=== PATIENT | male | born 1945 | race Caucasian/White ===

== ENCOUNTER → 2017-07-04 | Outpatient (CLI) | payer OTHER, MEDICARE ==
[~2017-07-04] MED LIST: ASPIR 8181 MG PO; ATORVASTATIN CA40 MG PO; CARVEDILOL3.125 MG PO; COZAAR 25 MG TA25 M1 PO; FLOMAX0.4 MG PO; HUMALOG100 UNIT/1 SUBQ; LEVAQUIN 750 M750 MG PO; METFORMIN HCL1000 MG PO; PROZAC20 MG PO; SIMVASTATIN40 MG PO
== END ==
LOC: NUC 07:12
DX: I25.10 Atherosclerotic heart disease of native coronary artery without angina pectoris (principal); E11.9 Type 2 diabetes mellitus without complications

== ENCOUNTER → 2018-07-14 | Outpatient (CLI) | payer OTHER, MEDICARE ==
--- NOTE | 2018-07-14 11:59 | 2DMMODE ---
[facility] [place] [address] 2 D/M-MODE ECHOCARDIOGRAM Name: YAN CLEANING Room #: REG [facility]#: [id number] ������������� Admission: 07/14/18 ������������� Attend Phys: Daniel Forrester MD Discharge: ��� ������������� ��� Date of : 49 Date of Service: 07/14/18 1158 �� Report #: [id number] �������� ��������������������������������������������[id number] THIS REPORT FOR: //name// APPROVED REPORT Study performed: 07/14/2018 11:16:58 EXAM: Comprehensive 2D, Doppler, and color-flow Echocardiogram Patient Location: Out-Patient Status: routine BSA: 1.93 HR: 59 bpm BP: 124/70 mmHg Rhythm: NSR Other Information Study Quality: Adequate Technically limited study due to lung artifact. Indications Cardiomyopathy, CAD. 2D Dimensions RVDd: 30.96 mm IVSd: 11.36 (7-11mm) LVOT Diam: 21.05 (18-24mm) LVDd: 45.99 mm PWd: 9.72 (7-11mm) Ascending Ao: 31.81 (22-36mm) LVDs: 28.17 (25-40mm) Aortic Root: 33.24 mm Volumes Left Atrial Volume (Systole) Single Plane 4CH: 41.51 mL Single Plane 2CH: 69.40 mL LA ESV Index: 31.00 mL/m2 Aortic Valve AoV Peak Javi.: 2.54 m/s AO Peak Gr.: 25.90 mmHg LVOT Max P.46 mmHg AO Mean Gr.: 12.69 mmHg AO V2 Mean: 1.66 m/s LVOT Max V: 1.17 m/s AO V2 VTI: 58.25 cm REI Vmax: 1.60 cm2 [facility] [employer] [place] [address] 2 D/M-MODE ECHOCARDIOGRAM Name: YAN CLEANING Room #: REG [facility]#: [id number] ������������� Admission: 07/14/18 ������������� Attend Phys: Daniel Forrester MD Discharge: ��� ������������� ��� Date of : 49 Date of Service: 07/14/18 1158 �� Report #: [id number] �������� ��������������������������������������������[id number] Mitral Valve E/A Ratio: 1.2 MV Decel. Time: 269.16 ms MV E Max Javi.: 0.86 m/s MV A Javi.: 0.73 m/s MV PHT: 78.06 ms IVRT: 83.04 ms Pulmonary Valve PV Peak Javi.: 0.75 m/s PV Peak Gr.: 2.23 mmHg Pulmonary Vein P Vein S: 0.48 m/s P Vein A: 0.30 m/s P Vein D: 0.56 m/s P Vein A Dur.: 143.0 msec P Vein S/D Ratio: 0.86 Tricuspid Valve TR Peak Javi.: 2.48 m/s RAP Estimate: 5.00 mmHg TR Peak Gr.: 24.61 mmHg PA Pressure: 31.00 mmHg Left Ventricle The left ventricle is normal size. There is normal LV segmental wall motion. There is normal left ventricular wall thickness. Left ventricular systolic function is normal. LVEF is 55-60%. Moderate diastolic dysfunction is present (pseudonormal filling). Right Ventricle The right ventricle is normal size. The right ventricular systolic function is normal. Atria The left atrium size is normal. The right atrium size is normal. Aortic Valve Aortic valve is moderately calcified. Trace aortic regurgitation. There is mild valvular aortic stenosis. Calculated aortic valve area is 1.6 cm2 with maximum pressure gradient of 26 mmHg and mean pressure gradient of 13 mmHg. Mitral Valve Mitral valve leaflets are mildly thickened. Mild mitral annular calcification. Trace mitral regurgitation. Tricuspid Valve [address] [address] 2 D/M-MODE ECHOCARDIOGRAM Name: YAN CLEANING Room #: REG [facility]#: [id number] ������������� Admission: 07/14/18 ������������� Attend Phys: Daniel Forrester MD Discharge: ��� ������������� ��� Date of : 49 Date of Service: 07/14/18 1158 �� Report #: [id number] �������� ��������������������������������������������[id number] The tricuspid valve is normal in structure. Mild to moderate tricuspid regurgitation. Estimated PAP is 30-35mmHg. Pulmonic Valve The pulmonary valve is normal in structure. Trace pulmonic regurgitation. Great Vessels The aortic root is normal in size. The ascending aorta is normal in size. IVC is normal in size and collapses >50% with inspiration. Pericardium There is no pericardial effusion. <Conclusion> The left ventricle is normal size. There is normal left ventricular wall thickness. Left ventricular systolic function is normal. Moderate diastolic dysfunction is present (pseudonormal filling). The right ventricle is normal size. The left atrium size is normal. There is mild valvular aortic stenosis. Mitral valve leaflets are mildly thickened. Mild mitral annular calcification. Mild to moderate tricuspid regurgitation. Estimated PAP is 30-35mmHg. ��������������������������������������������� <ELECTRONICALLY SIGNED> ���������������������������������������� By: Daniel Forrester MD ��������������������������������������������� 07/14/18 1158 1158 1158 Daniel Forrester MD /INF
== END ==
LOC: CV 10:03
DX: I08.3 Combined rheumatic disorders of mitral, aortic and tricuspid valves (principal); I42.9 Cardiomyopathy, unspecified; I25.10 Atherosclerotic heart disease of native coronary artery without angina pectoris

== ENCOUNTER 2018-09-26 19:32 | Emergency (ER) | payer OTHER, MEDICARE ==
[~2018-09-26] VITALS: Ht 162.6 cm; Wt 77.1 kg
[2018-09-26 20:21] LABS: ABSOLUTE NEUTROPHILS 3.5 thou/uL (1.4-8.2); BASOPHILS 0.5 % (0.0-2.0); EOSINOPHILS 0.6 % (0.0-3.0); HEMATOCRIT 41.9 % (42.0-52.0); HEMOGLOBIN 14.5 gm/dL (14.0-18.0); LYMPHOCYTES 21.7 % (24.0-44.0); MCH 34.8 pg (26.0-34.0); MCHC 34.6 g/dL (28.0-37.0); MCV 100.6 fL (80.0-100.0); MONOCYTES 8.1 % (1.0-8.0); PLATELET COUNT 108 thou/uL (150-400); POLYS 69.1 % (36.0-66.0); RBC 4.17 mil/uL (4.50-6.00); RDW 13.7 % (10.5-14.5)
[2018-09-26 20:30] LABS: ANION GAP 11 mmol/L (7-16); BUN 26 mg/dL (7-18); CALCIUM 9.3 mg/dL (8.5-10.1); CHLORIDE 102 mmol/L (98-107); CO2 26 mmol/L (21-32); GLUCOSE 118 mg/dL (74-106); POTASSIUM 3.9 mmol/L (3.5-5.1); SODIUM 139 mmol/L (136-145)
[2018-09-26 20:35] LABS: BE(vivo) 0.7 mmol/L (-2 to +3); HCO3 25.3 mmol/L (22.0-26.0); PCO2 40.9 mmHg (35.0-45.0)
[2018-09-26 20:38] LABS: TROPONIN-I <0.06 ng/mL (<0.06)
[2018-09-26] MEDS ORDERED: ARICEPT 5 MG TAB5 MG PO (20:39)
[2018-09-26] MEDS ORDERED: SINEMET 25-1001 EAC1 PO (20:40)
[2018-09-26] MEDS ORDERED: SERTRALINE HCL50 MG PO (20:40)
[2018-09-26] MEDS ORDERED: CLEOCIN HCL150 MG PO (23:08)
[2018-09-26 23:20] VITALS: BP 113/69
--- NOTE | 2018-09-27 10:41 | EKG ---
[place] [address] [facility] [place] [address] ELECTROCARDIOGRAM REPORT Name: YAN CLEANING [id number] Admission: 09/26/18 Attend Phys: Discharge: 09/27/18 Date of : 49 Report #: [id number] THIS REPORT FOR: //name// [facility] ED Test Date: 2018-09-26 Test Time: 20:17:18 Pat Name: YAN CLEANING Department: Room: Gender: M Control Inspector: alicia : 1945 Requested By: Leo Jimenez Order Number: [id number] MD: Bret Sawyer Measurements Intervals [place] Rate: 74 P: -57 RI: 196 QRS: 47 QRSD: 161 T: 8 QT: 418 QTc: 464 Interpretive Statements Sinus or ectopic atrial rhythm Right bundle branch block Compared to ECG 03/31/2016 15:43:28 No significant change was found Electronically Signed On 09-27-2018 10:41:05 CDT by Bret Sawyer [email or web address] <ELECTRONICALLY SIGNED> By: Bret Sawyer MD, [facility] 09/27/18 1041 16 16 Bret Sawyer MD, FACC /EPI
== END 2018-09-27 | disposition home or self-care (01) ==
LOC: ER 19:32
PROVIDERS: Emergency Medicine
DX: T18.128A Food in esophagus causing other injury, initial encounter (principal); J16.8 Pneumonia due to other specified infectious organisms; E11.9 Type 2 diabetes mellitus without complications; Z87.891 Personal history of nicotine dependence; Z88.8 Allergy status to other drugs, medicaments and biological substances; Z79.82 Long term (current) use of aspirin; Z79.899 Other long term (current) drug therapy; Z87.442 Personal history of urinary calculi; Y92.89 Other specified places as the place of occurrence of the external cause

== ENCOUNTER 2018-11-26 16:01 | Inpatient (IN) | payer OTHER, MEDICARE ==
[~2018-11-26] VITALS: Ht 152.4 cm; Wt 72.7 kg
--- NOTE | ~2018-11-26 | EMS ---
[address] [address] EMS Patient Care Report Name: YAN CLEANING Room #: REG [facility] Disla#: [id number] Admission: 11/26/18 Attend Phys: Discharge: Date of : 49 Report #: [id number] THIS REPORT FOR: //name// Report Transmitted: 11/26/2018 15:52 EMS Care Summary [place], [place]/[facility] Incident [id number] @ 11/26/2018 15:19 Incident Location [address] [place] [address] Patient YAN CLEANING Male, 73 Years 1945 Patient Address Patient History Dementia,Parkinson's Disease,Cardiac Condition - Other, Patient Allergies Lisinopril, Patient Medications Tamsulosin, Seroquel, Sertraline, Sinemet, Aspirin, Donepezil, Chief Complaint MULTIPLE FALLS Disposition Transported No Lights/[place] Dis[place] Reason Falls Transported To [facility] Narrative PT FOUND LYING IN BED. [facility] P37 ON SCENE. PT ROOMMATE STATES THAT PT HAS BEEN HAVING SEVERAL FALLS OVER LAST FEW DAYS. HE STATES THAT PT FELL THIS AM OUTSIDE AND HE HELPED HIM BACK INTO HOUSE AND UPSTAIRS. HE STATES HE FOUND PT ON FLOOR NEAR BED THIS AFTERNOON. PT C/O L UPPER ARM PAIN AND SEVERAL FACIAL ABRASIONS. TRANSPORTED WITHOUT INCIDENT. [address] [address] EMS Patient Care Report Name: YAN CLEANING Room #: REG [facility].#: [id number] Admission: 11/26/18 Attend Phys: Discharge: Date of : 49 Report #: [id number] Initial Vitals @15:41P: 80,R: 18,BP: 109/66,Pain: 6/10,GCS: 15,SpO2: 96,Revised Trauma: 12, Assessments @15:41MENTAL:No Abnormalities,SKIN:No Abnormalities,HEENT:Head/Face: Other,Eyes: No Abnormalities,Neck/Airway: No Abnormalities,LUNG SOUNDS:ABDOMEN:PELVIS//GI:EXTREMITIES:PULSE:NEURO:No Abnormalities, Impression Injury of Face Procedures @15:41ALS AssessmentResponse: UnchangedSucceeded Timeline 15:16,Call Received 15:16,Dispatch Notified 15:19,Dispatched 15:20,En Route 15:26,On Scene 15:41,At Patient 15:41,ALS Assessment,Response: UnchangedSucceeded, 15:41,BP: 109/66 M,PULSE: 80,RR: 18 R,SPO2: 96 Ox,ETCO2: ,BG: ,PAIN: 6,GCS: 15, 15:41,Depart Scene 15:56,At Destination 16:16,Call Closed Disclaimer v1.1 Copyright 2019 [employer] This EMS Care Summary contains data elements from the applicable legal record (which may be displayed differently). It is designed to provide pertinent information for the following purposes: continuity of care, clinical quality, and state data reporting. The complete legal record is available to ED staff and administrators of the receiving hospital in [facility]'s Patient Tracker. All data is provided "as is."
[~2018-11-26 16:01] MED LIST changes: +ARICEPT 5 MG TAB5 MG PO; +CLEOCIN HCL150 MG PO; +SINEMET 25-1001 EAC1 PO; +ZOLOFT25 MG PO
[2018-11-26 16:02] VITALS: BP 113/53
[2018-11-26 16:37] LABS: ABSOLUTE NEUTROPHILS 11.5 thou/uL (1.4-8.2); BASOPHILS 0.2 % (0.0-2.0); HEMATOCRIT 42.5 % (42.0-52.0); HEMOGLOBIN 14.4 gm/dL (14.0-18.0); LYMPHOCYTES 3.7 % (24.0-44.0); MCH 34.2 pg (26.0-34.0); MCHC 33.9 g/dL (28.0-37.0); MCV 100.9 fL (80.0-100.0); MONOCYTES 6.7 % (1.0-8.0); PLATELET COUNT 117 thou/uL (150-400); POLYS 89.4 % (36.0-66.0); RBC 4.21 mil/uL (4.50-6.00); WBC 12.9 thou/uL (4.0-11.0)
[2018-11-26 16:43] LABS: URINE BLOOD TRACE (Negative); URINE CLARITY CLEAR; URINE COLOR YELLOW; URINE GLUCOSE-RANDOM* NEGATIVE (Negative); URINE KETONES 1+ (Negative); URINE LEUKOCYTES-REFLEX NEGATIVE (Negative); URINE NITRITE-REFLEX NEGATIVE (Negative); URINE PROTEIN (DIPSTICK) TRACE (Negative); URINE SPECIFIC GRAVITY >= 1.030 (1.005-1.035); URINE UROBILINOGEN 0.2 E.U./dl (0.2-1.0)
[2018-11-26 16:45] LABS: ICTOTEST (BILI CONFIRMATORY) Negative (Negative); URINE BILIRUBIN NEGATIVE (Negative)
[2018-11-26 16:45] LABS: CALCIUM 9.8 mg/dL (8.5-10.1); CREATININE 1.2 mg/dL (0.7-1.3); POTASSIUM 3.9 mmol/L (3.5-5.1)
[2018-11-26 16:55] LABS: ALBUMIN 4.2 g/dL (3.4-5.0); TOTAL BILIRUBIN 2.8 mg/dL (<0.1-1.0); TOTAL PROTEIN 7.6 g/dL (6.4-8.2); TROPONIN-I 0.09 ng/mL (<0.06)
[2018-11-26 23:31] LABS: CHOLESTEROL 121 mg/dL (<200); HDL CHOLESTEROL 61 mg/dL (>40); LDL CHOLESTEROL 51 mg/dL (<100); SERUM ASSESSMENT Clear; TRIGLYCERIDE 45 mg/dL (<150); VLDL 9 mg/dL (<40)
[2018-11-27 00:45] VITALS: BP 111/60
[2018-11-27 01:02] VITALS: BP 118/51
--- NOTE | 2018-11-27 01:02 | NUR ---
REPORT TO CHARLES GARZA CCU.
[2018-11-27 01:17] VITALS: BP 123/73
[2018-11-27 04:53] VITALS: BP 98/62
--- NOTE | 2018-11-27 07:45 | NUR ---
tHE CARE OF THIS PATIENT BEGAN WITH A TRANSFER FROM ER. REPORT WAS GIVEN. THIS PATIENT WAS ADMITTED AND PATIENT WAS VERY SLEEPY AT THE TIME. PASSED PAPERWORK TO DAY SHIFT SECRATARY WITH THE CHART.PATIENT WAS ASSESSED AND MEDS PASSED IN THE MODEL MAKER. HOURLY ROUNDING WAS DONE. THE BED ALARM IS ON AND THE BED IS IN A LOW AND LOCKED POSITION.
--- NOTE | 2018-11-27 09:16 | EKG ---
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 : 1945 Requested By: Pamela Cervantes Order Number: [id number] MD: Bret Sawyer Measurements Intervals [place] Rate: 75 P: 40 MT: 213 QRS: -2 QRSD: 152 T: 16 QT: 433 QTc: 484 Interpretive Statements Sinus rhythm Ventricular premature complex Borderline prolonged MT interval Right bundle branch block Compared to ECG 09/26/2018 20:17:18 Ventricular premature complex(es) now present Electronically Signed On 11-27-2018 9:16:21 CDT by Bret Sawyer [email or web address] <ELECTRONICALLY SIGNED> By: Bret Sawyer MD, [facility] 11/27/18 0916 170 170 Bret Sawyer MD, [facility] /EPI
--- NOTE | 2018-11-27 09:17 | EKG ---
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: : 1945 Requested By: Iza Robertson Order Number: [id number] MD: Bret Sawyer Measurements Intervals [place] Rate: 74 P: 14 WV: 214 QRS: 3 QRSD: 149 T: 6 QT: 424 QTc: 471 Interpretive Statements Sinus rhythm Borderline prolonged WV interval Right bundle branch block Baseline wander in lead(s) V4 Compared to ECG 09/26/2018 20:17:18 Premature ventricular complexes are no longer present Electronically Signed On 11-27-2018 9:16:52 CDT by Bret Sawyer [email or web address] <ELECTRONICALLY SIGNED> By: Bret Sawyer MD, FACC 11/27/18 0916 1759 1759 Bret Sawyer MD, [facility] /EPI
--- NOTE | 2018-11-27 10:36 | 2DMMODE ---
[facility] [address] [place] [address] 2 D/M-MODE ECHOCARDIOGRAM Name: YAN CLEANING Room #: 205-P [facility] IN M.R.#: [id number] Admission: 11/26/18 Attend Phys: Jon Andre, Discharge: Date of : 49 Report #: [id number] THIS REPORT FOR: //name// APPROVED REPORT Study performed: 11/27/2018 08:43:15 EXAM: Comprehensive 2D, Doppler, and color-flow Echocardiogram Patient Location: In-Patient Room #: 205 Status: routine BSA: 1.86 HR: 80 bpm BP: 98/62 mmHg Rhythm: Irregular Other Information Study Quality: Adequate Indications Diabetes CAD Elevated Troponin Hypertension/HDD 2D Dimensions RVDd: 31.79 mm IVSd: 9.20 (7-11mm) LVOT Diam: 20.55 (18-24mm) LVDd: 44.84 mm PWd: 9.31 (7-11mm) Ascending Ao: 28.68 (22-36mm) LVDs: 28.11 (25-40mm) Aortic Root: 33.90 mm IVC: 17.00 mm Volumes Left Atrial Volume (Systole) Single Plane 4CH: 57.72 mL Single Plane 2CH: 82.73 mL LA ESV Index: 41.00 mL/m2 Aortic Valve AoV Peak Javi.: 3.09 m/s AO Peak Gr.: 38.24 mmHg LVOT Max P.22 mmHg AO Mean Gr.: 20.35 mmHg LVOT Mean P.77 mmHg AO V2 Mean: 2.12 m/s LVOT Max V: 1.48 m/s AO V2 VTI: 63.45 cm LVOT Mean V: 0.88 m/s REI (VTI): 1.41 cm2 LVOT V1 VTI: 26.94 cm [facility] [place] [address] 2 D/M-MODE ECHOCARDIOGRAM Name: YAN CLEANING Room #: 205-P [facility] IN ..#: [id number] Admission: 11/26/18 Attend Phys: Jon Andre, Discharge: Date of : 49 Report #: [id number] REI Vmax: 1.59 cm2 SV (LVOT): 89.29 mL Mitral Valve E/A Ratio: 1.2 MV Decel. Time: 295.58 ms MV E Max Javi.: 0.96 m/s MV A Javi.: 0.82 m/s MV PHT: 85.72 ms IVRT: 50.75 ms Pulmonary Vein P Vein S: 0.70 m/s P Vein A: 0.37 m/s P Vein D: 0.56 m/s P Vein A Dur.: 115.3 msec P Vein S/D Ratio: 1.25 Tricuspid Valve TR Peak Javi.: 2.96 m/s RAP Estimate: 5.00 mmHg TR Peak Gr.: 35.13 mmHg PA Pressure: 40.00 mmHg Left Ventricle The left ventricle is normal size. There is normal left ventricular wall thickness. The left ventricular systolic function is normal. The left ventricular ejection fraction is within the normal range. LVEF is 60%. Right Ventricle The right ventricle is normal size. The right ventricular systolic function is normal. Atria Left atrium is mildly dilated. Right atrium is mildly dilated. Aortic Valve Aortic valve is calcified. No aortic regurgitation is present. There is mild to moderate valvular aortic stenosis. Calculated aortic valve area is 1.4 cm2 with maximum pressure gradient of 38 mmHg and mean pressure gradient of 20 mmHg. Mitral Valve There is mitral annular calcification. Mitral valve leaflets are thickened. Trace to mild mitral regurgitation. No evidence of mitral valve stenosis. [facility] [address] [place] [address] 2 D/M-MODE ECHOCARDIOGRAM Name: YAN CLEANING Room #: [facility] IN [facility].#: [id number] Admission: 11/26/18 Attend Phys: Jon Andre, Discharge: Date of : 49 Report #: [id number] Tricuspid Valve The tricuspid valve is normal in structure. Mild tricuspid regurgitation. Estimated PAP is 40mmHg. Pulmonic Valve Pulmonic valve is not well visualized. Great Vessels The aortic root is normal in size. The ascending aorta is normal in size. IVC is normal in size and collapses >50% with inspiration. Pericardium There is no pericardial effusion. <Conclusion> The left ventricle is normal size. There is normal left ventricular wall thickness. The left ventricular systolic function is normal. The right ventricle is normal size. Left atrium is mildly dilated. Right atrium is mildly dilated. There is mild to moderate valvular aortic stenosis. Mitral valve leaflets are thickened. Trace to mild mitral regurgitation. Mild tricuspid regurgitation. Estimated PAP is 40mmHg. <ELECTRONICALLY SIGNED> By: Daniel Forrester MD 11/27/18 1036 1036 1036 Daniel Forrester MD /INF
[2018-11-27 16:05] VITALS: BP 108/61
--- NOTE | 2018-11-27 17:04 | NUR ---
met with patient who admits with weakness and dehydration. patient resides with friend in independent home with 5 steps to enter and 17 for bedrooms. PCP is Dr Sawyer. Patient with hx of parkinsons. He fell 3x within 24 hours. Friend reports they have lived together for 30 years. They are friends and not romantically involved. Another close friend is Sylvie. they assist with taking patient to phys apts. Patient recently started with interupted sleep. Friend thinks patient getting up at 3am and taking pills at that time. He went out at 3:30 to get paper and thats when on ground. Possibly laid there for 2 hours. Roommate feels patient may need assisted living in the future. 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 Discussed post acute care with patient and friend. Patient has been at transitional center in past and he did not like facility. His friend feels he rec good care and rehab and possibly didnt like having a roomate. left information of resources in room for friend for review.
--- NOTE | 2018-11-27 17:48 | NUR ---
ASSUMED CARE OF PT SHIFT CHANGE. ASSESSMENTS CHARTED. MEDS GIVEN PER APR. PT ALERT TO SELF AND PLACE. SHORTLY AFTER SHIFT CHANGED PT WAS TRYING TO GET OUT OF BED TO GO TO THE BATHROOM, BUT BECAME TWISTED IN BED AND HIT CHEEK ON THE BED RAIL NEAR HIS HEAD WHICH RESULTED IN A CUT AND SWELLING ON THE CHEEK. NOTIFIED PHYSICIAN AND TREATED WITH ICE. ALL FALL PRECAUTIONS IN PLACE AND EXPLAINED TO PT. PT WORKED WITH OT/PT WHO REINFORCED THAT HE IS WEAK AND HAS TROUBLE WITH BALANCE. WILL CONTINUE TO MONITOR AND FOLLOW POC.
[2018-11-27 19:54] VITALS: BP 110/61
[2018-11-28 04:44] VITALS: BP 124/68
--- NOTE | 2018-11-28 05:46 | NUR ---
PT A&O XI ORRIENTED TO SELF ONLY. HIGH FALL RISK BED ALARM IN PLACE BED IN LOW POSITION. PT HAD SEVERAL ATTEMPTS TO GET OUT OF BED. INCONT OF B&B. ACCU CHECKS ACHS. MOD ASSIST WITH TRANSFERS WITH RW/GB. PT HAS HX OF PARKINSONS. PT DENIES PAIN.
[2018-11-28 05:49] LABS: ABSOLUTE NEUTROPHILS 3.2 thou/uL (1.4-8.2); BASOPHILS 0.4 % (0.0-2.0); EOSINOPHILS 0.2 % (0.0-3.0); HEMATOCRIT 37.1 % (42.0-52.0); HEMOGLOBIN 12.6 gm/dL (14.0-18.0); LYMPHOCYTES 18.7 % (24.0-44.0); MCH 34.4 pg (26.0-34.0); MCHC 33.9 g/dL (28.0-37.0); MCV 101.4 fL (80.0-100.0); MONOCYTES 9.4 % (1.0-8.0); PLATELET COUNT 75 thou/uL (150-400); POLYS 71.3 % (36.0-66.0); RBC 3.66 mil/uL (4.50-6.00); WBC 4.5 thou/uL (4.0-11.0)
[2018-11-28 06:15] LABS: ALBUMIN 3.2 g/dL (3.4-5.0); CALCIUM 8.5 mg/dL (8.5-10.1); CREATININE 0.8 mg/dL (0.7-1.3); MAGNESIUM 1.7 mg/dL (1.8-2.4); PHOSPHORUS 2.5 mg/dL (2.5-4.9); POTASSIUM 3.3 mmol/L (3.5-5.1); TOTAL BILIRUBIN 2.2 mg/dL (<0.1-1.0); TOTAL PROTEIN 6.3 g/dL (6.4-8.2)
[2018-11-28 07:14] LABS: FOLIC ACID 9.1 ng/mL (8.6-58.9)
[2018-11-28 08:39] VITALS: BP 123/63
--- NOTE | 2018-11-28 14:26 | NUR ---
ASSUMED CARE OF PT AT APPROX 0700. PT IS ALERT AND ORIENTED TO SELF, MONITORED ON TELE AND ABLE TO MAINTAIN 02 SAT >90 ON RA. DENIES PAIN AND SOA. PT UP IN CHAIR FOR MAJORITY OF DAY. MILDY IMPULSIVE AT TIMES, BUT EASILY REDIRECTED. ASSESSMENT CHARTED. FAMILY HAS BEEN UPDATED ON POC. WILL CONTINUE TO MONITOR.
--- NOTE | 2018-11-28 15:05 | NUR ---
WOUND CONSULT; ROUNDING WITH DR COLIN. DISTAL TO THE LEFT EYE RE; UNKOWN TRAUMA. THE RIGHT FOREARM RE; TRAUMA. OPEN DRAINING S/S DRAINAGE. RECOMMEDNATIONS; APPLY BACITRACIN OINTMENT TO BOTH AREAS LEAVE HOUSEKEEPING LEAD DISCUSSED WITH CHARLES
--- NOTE | 2018-11-28 15:17 | NUR ---
5N eval pending for acute rehab stay. Pt's roommate here earlier and aware. Will follow.
[2018-11-28 16:10] VITALS: BP 103/58
[2018-11-28 17:10] VITALS: BP 116/65
[2018-11-28 17:30] VITALS: BP 1130/65
[2018-11-28 18:32] VITALS: BP 130/65
--- NOTE | 2018-11-29 05:09 | NUR ---
ASSUMED PT CARE AT 1900. PT VSS. PT IS ALERT AND ORIENTED TO SELF AND PLACE AT TIMES. PT PULLED IV TWICE AND REPLACED TWICE. PT WAS DISORIENTED THROUGHOUT THE NIGHT. TRIED TO GET OUT OF BED MULTIPLE TIMES EVEN WITH REORIENTATION AND DIRECTION. PT C/O NO PAIN. PT IS VERY UNSTEADY. WILL CONTINUE TO MONITOR PT PER POC.
[2018-11-29 05:56] VITALS: BP 127/72
[2018-11-29 07:03] LABS: ABSOLUTE NEUTROPHILS 3.1 thou/uL (1.4-8.2); BASOPHILS 0.5 % (0.0-2.0); EOSINOPHILS 0.9 % (0.0-3.0); HEMATOCRIT 36.5 % (42.0-52.0); HEMOGLOBIN 12.5 gm/dL (14.0-18.0); LYMPHOCYTES 18.1 % (24.0-44.0); MCH 34.4 pg (26.0-34.0); MCHC 34.3 g/dL (28.0-37.0); MCV 100.4 fL (80.0-100.0); MONOCYTES 9.8 % (1.0-8.0); PLATELET COUNT 83 thou/uL (150-400); POLYS 70.7 % (36.0-66.0); RBC 3.63 mil/uL (4.50-6.00); RDW 12.8 % (10.5-14.5); WBC 4.3 thou/uL (4.0-11.0)
[2018-11-29 07:28] LABS: CALCIUM 8.5 mg/dL (8.5-10.1); CREATININE 0.7 mg/dL (0.7-1.3); MAGNESIUM 1.8 mg/dL (1.8-2.4); PHOSPHORUS 2.9 mg/dL (2.5-4.9); POTASSIUM 3.2 mmol/L (3.5-5.1)
[2018-11-29 12:26] VITALS: BP 105/81
--- NOTE | 2018-11-29 14:53 | NUR ---
PT IS A CANDIDATE FOR 5[facility] RE[facility]AB PER DR BURNETT. PT IS EXPERIENCING CONFUSION AND HAD A NON INJURY FALL THIS MORNING. WILL PLAN TO ADMIT PT Saturday12/01/18.
[2018-11-29 17:54] VITALS: BP 102/62
--- NOTE | 2018-11-29 18:24 | NUR ---
PT SLEPT MOST OF THE MORNING, FULLY AWAKE AROUND 1100, PT SAT UP TO EAT LUNCH, ONLY TRIED TO GET OUT OF BED TWICE WHEN HE NEEDED TO USE THE BATHROOM, PT URINATED IN URINAL ONCE BUT WAS MOSTLY INCONTINENT, PT ASKING FOR SHOWER, COMMUNITY BOARD MEMBER ASSISTED PT IN TAKING SHOWER WITH HELP OF SHOWER CHAIR PT TOLERATED WELL, PT ORIENTED TO PERSON, PLACE AND TIME THIS SHIFT. TRANSFERRED TO ROOM 461.
[2018-11-29 19:20] VITALS: BP 119/75
--- NOTE | 2018-11-29 19:23 | NUR ---
Received pt from with facial laceration under the left eye. Pt is a forgetful and confused but easily redirected. Resumed IV meds, no signs or verbalizations of distress or pain have been noted. Medication is given whole with apple sauce. Dentures are in his container soaked in vinegar as per the pt requests. POC followed, pt is incontinent of both but can be continent at times. Endorsed to the labeling machine operator.
--- NOTE | 2018-11-30 04:07 | NUR ---
ASSUMED CARE AROUND 191. AXOX3 WITH FORGETFULNESS. DOES NOT CALL FOR HELP AND LITTLE IMPULSIVE WHEN IT COMES TO GETTING UP. ADVISED SEVERAL TIMES TO CALL BEFORE GETTING UP. DOES NOT FOLLOW COMMAND VERY WELL. INCONT B/B. NO S/S ACUTE DISTRESS NOTED OR REPORTED AT THIS TIME. WILL CONT TO MONITOR FOR ANY CHANGES IN CONDITION.
[2018-11-30 04:40] VITALS: BP 126/67
[2018-11-30 07:56] VITALS: BP 124/70
[2018-11-30 10:01] LABS: HEMATOCRIT 38.1 % (42.0-52.0); HEMOGLOBIN 13.1 gm/dL (14.0-18.0); MCH 34.7 pg (26.0-34.0); MCHC 34.3 g/dL (28.0-37.0); MCV 101.3 fL (80.0-100.0); RBC 3.76 mil/uL (4.50-6.00); RDW 12.9 % (10.5-14.5)
[2018-11-30 10:34] LABS: ALBUMIN 3.3 g/dL (3.4-5.0); CALCIUM 8.5 mg/dL (8.5-10.1); CREATININE 0.8 mg/dL (0.7-1.3); POTASSIUM 3.4 mmol/L (3.5-5.1); TOTAL BILIRUBIN 2.2 mg/dL (<0.1-1.0); TOTAL PROTEIN 6.5 g/dL (6.4-8.2)
[2018-11-30 12:03] VITALS: BP 134/61
--- NOTE | 2018-11-30 15:25 | NUR ---
Assumed pt care this am, still confused does not call help at times, uses the goetz when he remembers. Pt uses the urinal but can be incontinent at times. Pt does not follow instructions very well. Pt tolerates diet and medicatin well. POC followed, no signs of distress have been noted.
[2018-11-30 15:37] VITALS: BP 112/62
[2018-11-30 19:20] VITALS: BP 135/62
[2018-12-01 03:21] VITALS: BP 143/73
--- NOTE | 2018-12-01 03:43 | NUR ---
PT CARE ASSUMED AT 19:15 WITH PT IN BED.PT IS ALERT TO SELF.PT IS FORGETFUL AND CONFUSE.PT USES URANL AND ALSO INCONTNENT.PT FORGETS TO CALL FOR HELP WHEN GETTING UP.FALL PREC IN PLACE.IV ACCESS ON LFA WITH NS 125ML/HR.LACERATION ON FACE WITH NO DARINAGE AND OPEN TO AIR.CONTINUE TO MONITOR.
[2018-12-01 05:30] LABS: ABSOLUTE NEUTROPHILS 2.5 thou/uL (1.4-8.2); BASOPHILS 0.6 % (0.0-2.0); EOSINOPHILS 1.7 % (0.0-3.0); HEMATOCRIT 37.5 % (42.0-52.0); HEMOGLOBIN 12.9 gm/dL (14.0-18.0); MCH 34.4 pg (26.0-34.0); MCHC 34.3 g/dL (28.0-37.0); MCV 100.5 fL (80.0-100.0); MONOCYTES 10.4 % (1.0-8.0); PLATELET COUNT 90 thou/uL (150-400); POLYS 65.3 % (36.0-66.0); RBC 3.73 mil/uL (4.50-6.00); RDW 12.9 % (10.5-14.5); WBC 3.8 thou/uL (4.0-11.0)
[2018-12-01 05:52] LABS: ALBUMIN 3.2 g/dL (3.4-5.0); CALCIUM 8.6 mg/dL (8.5-10.1); CREATININE 0.8 mg/dL (0.7-1.3); MAGNESIUM 1.6 mg/dL (1.8-2.4); PHOSPHORUS 3.1 mg/dL (2.5-4.9); POTASSIUM 3.1 mmol/L (3.5-5.1); TOTAL BILIRUBIN 2.2 mg/dL (<0.1-1.0); TOTAL PROTEIN 6.4 g/dL (6.4-8.2)
--- NOTE | 2018-12-01 07:28 | NUR ---
pt pulled out iv and a new iv access was inserted on the rt FA.
[2018-12-01 07:30] VITALS: BP 122/91
[2018-12-01 13:38] LABS: BE(vivo) -0.2 mmol/L (-2 to +3); PCO2 33.2 mmHg (35.0-45.0); pH 7.458 (7.360-7.450); sO2 95.2 % (92.0-98.0)
--- NOTE | 2018-12-01 16:23 | NUR ---
CM SPOKE WITH PT'S HOUSEMATE JAMEL THIS MORNING AND INDIATED THAT PT HAD BEEN ACCEPTED FOR ADMISSION TO [facility] ACUTE INPATIENT REHAB ONCE MEDICALLY STABLE. HE IS AGREEABLE WITH THAT PLAN. CM TO FOLLOW INDICATED WITH DC PLANNING.
[2018-12-01 17:02] VITALS: BP 121/69
--- NOTE | 2018-12-01 19:37 | NUR ---
ASSUMED CARE 0700. ON REPORT PT ALERT X3 AND CONVERSIVE. HELD MORNING MED DUE PATIENT SLEEPING. STERNAL RUB AWAKENED PATIENT TO ANSWER SIMPLE QUESTIONS. LOW BLOOD SUGAR TREATED WITH AMP D50 2X'S.INCONTINENT. BECAME ALERT AFTER 4PM. FALL PRECAUTIONS IN PLACE.
[2018-12-01 19:50] VITALS: BP 109/64
[2018-12-01 22:30] LABS: URINE BILIRUBIN NEGATIVE (Negative); URINE BLOOD NEGATIVE (Negative); URINE CLARITY CLEAR; URINE COLOR YELLOW; URINE GLUCOSE-RANDOM* NEGATIVE (Negative); URINE KETONES NEGATIVE (Negative); URINE LEUKOCYTES-REFLEX NEGATIVE (Negative); URINE NITRITE-REFLEX NEGATIVE (Negative); URINE PROTEIN (DIPSTICK) NEGATIVE (Negative); URINE SPECIFIC GRAVITY <= 1.005 (1.005-1.035); URINE UROBILINOGEN 0.2 E.U./dl (0.2-1.0)
[2018-12-02] VITALS (7 sets, daily range): BP systolic 99–105; BP diastolic 57–60
--- NOTE | 2018-12-02 06:43 | NUR ---
assumed care of pt @1900. pt a&ox4. pt was confused at the start of the shift, but later cleared up and was able to answer my questions approp. pt was incont at the start of the shift. male external cath was placed and patent. pt is on a swallow prec. with thin liquids and lakesha straws. D5 fluid was hung and BG is wnl. fall prec in place. no s/s of distress. will cont to monitor
[2018-12-02 07:17] LABS: INR 1.2; PROTIME 12.3 Seconds (9.3-11.4)
[2018-12-02 07:22] LABS: CALCIUM 8.8 mg/dL (8.5-10.1); CREATININE 0.8 mg/dL (0.7-1.3); MAGNESIUM 1.8 mg/dL (1.8-2.4); PHOSPHORUS 3.2 mg/dL (2.5-4.9)
[2018-12-02 07:26] LABS: POTASSIUM 2.9 mmol/L (3.5-5.1)
--- NOTE | 2018-12-02 14:50 | NUR ---
[facility] HAS ACCEPTED PT FOR ADMISSION BUT NURSE INDICATED THAT PT IS EXHIBITING SOME CONFUSION. 5N TO VISIT WITH PT TO DETERMINE IF THEY ARE ABLE TO ADMIT HIM TODAY. CM TO FOLLOW INDICATED WITH DC PLANNING.
[2018-12-02] MEDS ORDERED: MELATONIN5 M1 PO (15:41)
[2018-12-02] MEDS ORDERED: BACITRACIN Z28.35 GM TOP (15:42)
[2018-12-02] MEDS ORDERED: POTASSIUM CHLO20 MEQ PO (15:43)
--- NOTE | 2018-12-02 16:03 | NUR ---
CARE TEAM INDICATED THAT PT IS MEDICALLY STABLE TO DC TO 5[facility] ACUTE REHAB THIS DAY. CM CALLED AND NOTIFIED PT'S HOUSE MATE/DPOA RHODA. HE IS AWARE AND AGREEABLE. PT IS TO GO TO RM 513. NO OTHER CM INTERVENTION INDICATED. CASE CLOSED.
--- NOTE | 2018-12-02 17:22 | NUR ---
Assuemed pt care this am, pt stayed on the recliner for most of the day. Pt is still confused and would be impulsive and try to get out of the chair with out calling. Pt would stay he needs to get his clothes to go to an event. FAll and swallo precautions in place, pt is beside the station for close monitoring. Pt is very unsteady in his gait. Potassium was replaced with IV and oral medication, informed rehab nurse that there is no scheduled draw for the recheck of potassium. IV was removed by the pt earlier. Medication applied to the facial wound. Diet and medication is well tolerated. Blood sugar checks completed with no need for insulin. POC followed no signs or verbalizations of distress have been noted. Report given to 5N pt is transfreing to 513. Pt is now DC
--- NOTE | 2018-12-07 11:42 | HC ---
[facility] [place] [address] CONSULTATION Name: YAN CLEANING Room #: 461-P [facility] IN M.R.#: [id number] Admission: 11/26/18 Attend Phys: Aicha James MD Discharge: 12/02/18 Date of : 49 Report #: [id number] THIS REPORT FOR: //name// CC: ANDREW physician/PCP Aicha James DATE OF SERVICE: 11/28/2018 WOUND CARE CONSULTATION HISTORY OF PRESENT ILLNESS: The patient is a 73-year-old male patient with a history of Parkinson's disease, who I have been asked to see with regard to multiple abrasions to the forehead and face after having fallen and striking his face against a wall. The patient does not have much recollection, but knows he has been falling and has abrasions to his forearms as well. He states that this did happen at home, although cannot recall the exact events. PAST MEDICAL HISTORY: Positive for hypertension, type 2 diabetes mellitus, Parkinson's disease and coronary artery disease. SOCIAL HISTORY: The patient is a previous smoker, having quit 3 years ago. Occasional alcohol use noted. He has a history of THC use, but none recently. FAMILY HISTORY: Positive for hypertension. ALLERGIES: LISINOPRIL. MEDICATIONS: Include acetaminophen, aspirin, carbidopa/levodopa, docusate sodium, benazepril, famotidine, hydroxyzine, melatonin, magnesium hydroxide, olanzapine, senna, sertraline and tramadol. REVIEW OF SYSTEMS: Somewhat limited and is really positive for the items mentioned in the history of present illness due to his confusion and inability to answer questions. Additional review of systems is not obtainable. PHYSICAL EXAMINATION: VITAL SIGNS: Temperature 36.7, pulse 62, respiratory rate 20, blood pressure 120/63. GENERAL: This is a chronically ill-appearing male patient who appears to be in minimal distress. HEENT: Examination of the head demonstrates an abrasion to the right side of the forehead. There is also a laceration in the left infraorbital region. There is a little bit of separation, is not overtly infected. Facial structures are stable. NECK: Supple. LUNGS: Clear. [facility] [address] [place] [address] CONSULTATION Name: YAN CLEANING Room #: 461-P [facility] IN M.R.#: [id number] Admission: 11/26/18 Attend Phys: Aicha James MD Discharge: 12/02/18 Date of : 49 Report #: [id number] HEART: Irregular. ABDOMEN: Nontender, soft, nondistended. EXTREMITIES: Demonstrate multiple abrasions to the forearms bilaterally, all appear to have dry crust in place, not infected. NEUROLOGIC: The patient does have a symmetrical movement. His memory is somewhat limited at this time. LABORATORY DATA: Sodium 143, potassium 3.3, chloride 107, CO2 24, BUN 17, creatinine 0.8, glucose 82, calcium 8.5, phosphorus 2.5, magnesium 1.7, AST is 256, ALT is 58, alkaline phosphatase 80. White blood cell count 4.5, hemoglobin 12.6, hematocrit 37.1. CLINICAL IMPRESSION: 1. Abrasion to the right forehead, laceration in the left infraorbital region. 2. Multiple abrasions to the arms. 3. Hypertension. 4. Diabetes. 5. Parkinson's disease. RECOMMENDATIONS: We will recommend bacitracin ointment to the forehead and left infraorbital laceration. The laceration could have potentially benefited from a primary repair; however, the age is unknown and it is felt that at this point closure would lead only to infection and abscess. We will recommend skin prep to the abrasions to his arms, good nutritional support, PT and OT evaluation and continuation of current medications. I appreciate being asked to see him in consultation. <ELECTRONICALLY SIGNED> By: Pranay Phillips MD 12/07/18 1142 [id number] Pranay Phillips MD /nt
--- NOTE | 2018-12-09 10:41 | HC ---
[facility] [place] [address] CONSULTATION Name: YAN CLEANING Room #: 461-P [facility] IN M.R.#: [id number] Admission: 11/26/18 Attend Phys: Aicha James MD Discharge: 12/02/18 Date of : 49 Report #: [id number] THIS REPORT FOR: //name// CC: ANDREW physician/PCP Aicha James DATE OF SERVICE: 11/28/2018 HISTORY OF PRESENT ILLNESS: The patient is a 73-year-old white male previously known to me, who was admitted to [facility] with multiple falls. He had 3 falls in one day. Questionable loss of consciousness. He has a recent diagnosis of Parkinson's disease. He is on Sinemet. There is question of autonomic dysfunction. He had been on Flomax and this was stopped. He sustained multiple bruises to his face. CT of the head was negative for any acute changes. He is thought to have definite acute mental status changes and appears to have a multifactorial encephalopathy. He had acute rhabdomyolysis with a CPK of 6905. He also has elevated bilirubin with an abdominal ultrasound obtained. The only thing I see is some borderline enlargement of the spleen. Liver size was noted to be normal. Cardiology did see him and did not feel that he had had a cardiac event and that the elevated troponin is related to the muscle breakdown with his rhabdomyolysis. The patient has had a significant decline from his premorbid status and we are seeing him in rehabilitation medicine consultation. His prior medical history includes non-ST elevation MS in 2017, history of bibasilar pneumonia. At that time, he had left rib fracture. History of diabetes mellitus, hypertension, and hyperlipidemia. He has utilized a left AFO in the past. PAST MEDICAL HISTORY: He has had kidney stone removal and stent placement. 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 HABITS: Former tobacco smoker, quit approximately 3 years ago. History of alcohol use, quit 3 years ago. FAMILY HISTORY: Hypertension. SOCIAL HISTORY: Lives with long-term male roommates, that he is known since college, 5 steps in. Premorbid walker ambulator versus cane, although he did not always use them. Has not been driving recently. REVIEW OF SYSTEMS: Did not offer any current complaints of chest pain, shortness of breath, or abdominal discomfort. No headache, bowel or bladder changes were noted, although the patient is a rather vague historian. He does have some superficial discomfort right knee from the knee scrapes. PHYSICAL EXAMINATION: GENERAL: He is a 73-year-old white male in no obvious distress. [facility] [address] [place] [address] CONSULTATION Name: YAN CLEANING Room #: 461-P [facility] IN M.R.#: [id number] Admission: 11/26/18 Attend Phys: Aicha James MD Discharge: 12/02/18 Date of : 49 Report #: [id number] VITAL SIGNS: Last recorded temperature 98.1, pulse 62, respirations 20, blood pressure 123/63. NEUROLOGIC: He is alert. He is a limited historian. Has decreased insight into his deficits. We will follow basic 1 step commands. He has multiple facial scrapes and ecchymoses. EOMs appeared to be full. No obvious visual field neglect. He may have some mild depressed left nasolabial fold. Upper extremities, he does have some rigidity. There is some cogwheeling of both upper extremities. Strength is probably a grade 3+ to 4-/5. Lower extremities: He has superficial scrapes of the skin over his right knee. There is no calf swelling. Tone appeared to be intact. Some rigidity is noted. Strength is probably a grade 3+/5. He is mod assist for sit to stand. Gait was max assist 23 feet with front-wheeled walker. ASSESSMENT: A 73-year-old white male with the following problem list: 1. Parkinson's disease. 2. Multifactorial toxic metabolic encephalopathy. 3. Questionable head injury. Multiple facial excoriations and ecchymoses. 4. Gait instability with multiple falls. 5. Rhabdomyolysis. 6. Question of autonomic dysfunction. 7. Elevated bilirubin. 8. Hypertension. 9. Hyperlipidemia. 10. Diabetes mellitus type 2. PLAN: The patient is a candidate for an acute [address] [place] [address] inpatient rehabilitation stay. Can transfer to the [address] [place] [address] acute rehab [facility] when medically ready and a bed available. Thank you for asking us to assist in this patient's care. <ELECTRONICALLY SIGNED> By: Maikol Cooley MD 12/09/18 1041 [id number] Maikol Cooley MD /nt
== END 2018-12-02 17:33 | DRG 564 ==
LOC: ER 16:01 → 4W 18:48 → 2N 18:48 → 4W 18:48 → EROBS 18:48 → 2N 11-27 01:03 → 4W 11-29 17:24
PROVIDERS: Internal Medicine; Nurse Practitioner Acute Care; Physician Assistant; ADMIT Internal Medicine
DX: T79.6XXA Traumatic ischemia of muscle, initial encounter (principal); G92 Toxic encephalopathy; I42.9 Cardiomyopathy, unspecified; J98.11 Atelectasis; E86.0 Dehydration; G20 Parkinson's disease; R09.02 Hypoxemia; E87.6 Hypokalemia; E11.649 Type 2 diabetes mellitus with hypoglycemia without coma; D69.6 Thrombocytopenia, unspecified; I25.10 Atherosclerotic heart disease of native coronary artery without angina pectoris; E80.6 Other disorders of bilirubin metabolism; E53.8 Deficiency of other specified B group vitamins; S00.212A Abrasion of left eyelid and periocular area, initial encounter; I35.0 Nonrheumatic aortic (valve) stenosis; S00.81XA Abrasion of other part of head, initial encounter; S40.812A Abrasion of left upper arm, initial encounter; S40.811A Abrasion of right upper arm, initial encounter; I10 Essential (primary) hypertension; E78.5 Hyperlipidemia, unspecified; S09.90XA Unspecified injury of head, initial encounter; W01.0XXA Fall on same level from slipping, tripping and stumbling without subsequent striking against object, initial encounter; Z79.84 Long term (current) use of oral hypoglycemic drugs; Z87.442 Personal history of urinary calculi; Z79.82 Long term (current) use of aspirin; Z88.8 Allergy status to other drugs, medicaments and biological substances; Z79.899 Other long term (current) drug therapy; I25.2 Old myocardial infarction; Z82.49 Family history of ischemic heart disease and other diseases of the circulatory system; Y93.89 Activity, other specified; Y92.89 Other specified places as the place of occurrence of the external cause; Y99.8 Other external cause status; Z87.891 Personal history of nicotine dependence
CPT/HCPCS: 10047; 10081; 10797

== ENCOUNTER 2018-12-02 12:33 | Inpatient (IN) | payer OTHER, MEDICARE ==
[~2018-12-02] VITALS: Ht 175.3 cm; Wt 71.2 kg
[2018-12-02] MEDS ORDERED: MELATONIN5 M1 PO (15:41)
[2018-12-02] MEDS ORDERED: BACITRACIN Z28.35 GM TOP (15:42)
[2018-12-02] MEDS ORDERED: POTASSIUM CHLO20 MEQ PO (15:43)
[2018-12-02 18:00] VITALS: BP 97/57
[2018-12-02 19:35] VITALS: BP 96/59
--- NOTE | 2018-12-02 20:21 | NUR ---
PT JUST ADMITTING IN 5[facility] DURING SHIFT CHANGE. PT IS IN BED, VERY BUSY WITH PULLING THING AND TRIED TO GOT UP AND PULLING SCD OFF, RESTLESS, CONFUSED. THIS CREASING MACHINE OPERATOR OFFER SITTING WITH PT FOR SAFETY WHILE NIGHT STAFF GET REPORTS AND GET START WITH NIGHT VITAL SIGNS. OFFERED SUPPORTIVE CARE, KEEP PT CALM AND COMFORTABLE. PT C/O RIGHT KNEE PAIN 04/20, NOTIFIED CADE CRAWFORD RN TO OBTAIN ORDER FOR TYLELNOL. TYLENOL PRN GIVEN AND MELATONIN GIVEN. PT TOOK MEDS WITH YOGURT, CONTINUE TO BE ON ASPIRATION PRECAUTION. TOOK MEDS. HE IS PLAYING WITH HIS CALL LIGHT NOW. FALL PRECAUTION IN PLACE.
--- NOTE | 2018-12-03 05:01 | NUR ---
PT VERY CONFUSED AND KEEP TRYING TO GET UP AND PUSH THROUGH STAFF SAYING THAT HE HAD TO GET TO WORK. AGITATED. CLIMBING OUT OF BED CONSTANTLY. VERY HIGH FALL RISK. MALGORZATA HILARIO ORDERED MEDS TO HELP PT RELAX. PT MONITORED FREQUENTLY. SLEEPING WELL AT THIS TIME.
[2018-12-03 06:07] LABS: HEMATOCRIT 37.3 % (42.0-52.0); HEMOGLOBIN 12.8 gm/dL (14.0-18.0); MCH 34.8 pg (26.0-34.0); MCHC 34.3 g/dL (28.0-37.0); MCV 101.3 fL (80.0-100.0); RBC 3.68 mil/uL (4.50-6.00); RDW 13.1 % (10.5-14.5); WBC 3.2 thou/uL (4.0-11.0)
[2018-12-03 06:54] LABS: CALCIUM 8.9 mg/dL (8.5-10.1); CREATININE 0.8 mg/dL (0.7-1.3); MAGNESIUM 1.8 mg/dL (1.8-2.4); POTASSIUM 3.6 mmol/L (3.5-5.1)
[2018-12-03 08:10] VITALS: BP 122/64
--- NOTE | 2018-12-03 10:00 | NUR ---
chart review, pt up working with ot in room. intro to cm, transition of care, and team meeting. per chart pt lives with friend. 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 been to angi transition care in past and did not care for it"/pt and chart. will cont following as needed for dc needs.
--- NOTE | 2018-12-03 14:02 | NUR ---
Nutrition: Assessed due to consult received stating poor intake. Admit to rehab with Parkinsons disease. ST following for mild-moderate dysphagia/modified diet need. Unable to speak with pt today as required dose of anxiety medication and was sleeping. Periods of agitation/confusion especially at night noted. On acute, weight was reported as > 200# a few years ago but pt intentionally lose weight as was told would benefit his diabetes. Current 157# and BMI is WNL. BG well controlled. At home noted pt eats a light breakfast, snacks during the day and cooks own meals for dinner. Has dentures. No prior supplements desired. Will follow intake trends to determine if supplements should be addressed again. Place as low risk.
--- NOTE | 2018-12-03 18:51 | NUR ---
ASSUMED CARE OF PT AT 0715. PT IS ALERT AND ORIENTED TO PERSON ONLY, VITAL SIGNS ARE STABLE. UP FOR ALL MEALS WITH 100% SUPERVISION. ACCU CHECK ACHS. MEDICAITONS WHOLE IN PUREE. DENIES PAIN AND PARTICIPATED IN THERAPIES. IMPULSIVE AND REQUIRES SUPERVISION FROM STAFF AND DOORS TO UNIT CLOSED WHEN PT OOB. FALL PRECAUTIONS IN PLACE AND NURSING WILL CONTINUE TO MONITOR.
[2018-12-03 19:39] VITALS: BP 77/40
[2018-12-03 20:46] VITALS: BP 83/45
[2018-12-04] VITALS: BP 85/54
--- NOTE | 2018-12-04 02:14 | NUR ---
ASSESSMENT: PT REMAIN ALERT AND ORIENT TIMES TWO, FORGETFUL TO SITUATION. UP WITH UNSTEADY GAIT WITH GB/WALKER AND ASSIST OF ONE TO THE BR. PT TEND TO WANT TO LEAN BACKWARDS WHEN AMBULATING. PT WAS PLEASANT AND WAS NEVER COMBATIVE TOWARDS STAFF. PT'S BP WAS LOW AT 85/54, HR 66. JUAN HILARIO CANDY STARCH MOLD PRINTER WAS NOTIFIED OF PT'S BP. NO ORDERS WERE GIVEN, WILL RECHECK BP AT 0400. PT DOES LOSARTAN 12.5MG AT 0900. LEDT LAC UNDERNEATH EYE IS BENNETT, BRUISED AND DRY. DENIES PAIN. SLOW PROGRESS TOWARDS DC GOALS. WILL CONTINUE TO MONITOR.
[2018-12-04 10:51] VITALS: BP 124/84
--- NOTE | 2018-12-04 14:15 | NUR ---
ASSUMED CARE OF PT AT 0715. PT IS A&OX3-4 AND VITAL SIGNS ARE STABLE. DENIES PAIN AND IS PARTICIPATING IN SCHEDULED THERAPIES. IMPULSIVE AND REQUIRES SUPERVISION AND CUES FOR SAFETY. VISITORS THIS AFTERNOON. FALL PRECAUTIONS IN PLACE AND NURSING WILL CONTINUE TO MONITOR.
[2018-12-04 20:10] VITALS: BP 99/60
--- NOTE | 2018-12-04 21:00 | NUR ---
UP TO BATHROOM WITH STANDBY ASSIST ONCE UP. USING URINAL WITHOUT PROMPTS AT THIS TIME. PILLS WITH APPLESAUCE SITTNG UP 90 DEGREES
--- NOTE | 2018-12-05 06:22 | NUR ---
ASSESSMENT: PT SLEP MOST OF NIGHT. C/O LEFT SHOULDER PAIN., TYLENOL GIVEN. MORE CONFUSED THAN THE PREVIOUS NIGHT. BLOOD PRESSURE HAS INCREASED. PT STATE THAT HE WANTS TO GO HOME. WILL CONTINUE TO MONITOR,
[2018-12-05 09:43] VITALS: BP 133/110
[2018-12-05 20:22] VITALS: BP 95/56
--- NOTE | 2018-12-05 21:48 | NUR ---
ASSUMED CARE OF PT AT 0715. PT IS A&OX1, VITAL SIGNS STABLE. PT IS IMPULSIVE AND HAS PERIODS OF AGITATION. REQUIRES FREQUENT VISUAL CHECKS BY STAFF. RETROPULSIVE AND FREQUENTLY REQUIRES 2 PERSON ASSIST FOR TRANSFERS AND AMBULATION FOR BALANCE AND CUES FOR SAFETY. REQUIRED 1:1 STAFFING THIS EVENING DUE TO FREQUENT ATTEMPTS ATTEMPTS TO TRANSFER AND AMBULATE. MEDICATIONS GIVEN PER ORDERS FOR AGITATION, WITH LITTLE EFFECT. ROOMATE CONTACTED BY NURSING TO SIT WITH PT THIS EVENING. PT AT BEDSIDE, REPORTS CONCERNS ABOUT PT REQUIRING SUPERVISION AND STATES THAT HE ISN'T ABLE TO STAY WITH PT. UP FOR ALL MEALS WITH 100% SUPERVISION. ACCU CHECKS BID, NO INSULIN GIVEN DUE TO LOW BLOOD GLUCOSE LEVELS. PAIN MANAGED WITH PO MEDICAITONS AND PATCH, PARTICIPATED IN SCHEDULED THERAPIES. FALL PRECAUTIONS IN [place]CE AND NURSING WILL CONTINUE TO MONITOR.
--- NOTE | 2018-12-06 04:36 | NUR ---
assumed care at approx 1900 evening 12/05. pt sitting up in recliner at change of shift and friend arrived shortly after change of shift to sit with pt. pt assisted into bed and friend stayed approx 1-2 hrs. pt confused and impulsive. pt incontinent of urine requiring assistance with changing of pad in bed and sheets. pt took hs meds with applesauce tolerating well. pt continued to be somewhat impulsive and trying to climb out of bed at times. pt c/o knee pain and given Tramadol with no relief. pt continued to be confused and somewhat impulsive. pt given po meds as ordered. pt presently appears to be sleeping. bed alarm on and call light in reach. will continue to monitor.
[2018-12-06 10:43] VITALS: BP 95/57
--- NOTE | 2018-12-06 16:39 | NUR ---
AAOX2 FORGETFUL KNOWS NAME AND PLACE. ATE MEALS IN DINNING ROOM WITH GOOD APPETITE. ABLE TO FEED SELF WITH LITTLE DIFFICULTY. TAKES PILLS IN APPLESAUCE. DENIES PAIN. FRIENDS HERE TO VISIT. WORKS WELL WITH THERAPY.
[2018-12-06 18:23] VITALS: BP 115/71
[2018-12-06 19:26] VITALS: BP 100/64
--- NOTE | 2018-12-06 19:30 | NUR ---
VISITING WITH FRIEND SITTING IN W/C SHE REPORTED THAT SHE TURNED AND HE STOOD UP AND SLID DOWN WALL. UNCLEAR IF HE WENT ALL THE WHY DOWN PATIENT WAS STANDING WHEN STAFF ARRIVED. CHAIR ALARM WAS ON. PATIENT DENIED PAIN OR INJURY. VITAL SIGNS STABLE. PHYSICIAN AND SUPERVISOR MOLD SHOP NOTIFIED.
[2018-12-06 20:01] VITALS: BP 101/63
--- NOTE | 2018-12-07 02:12 | NUR ---
ASSESSMENT: PT REMAIN ALERT AND ORIENT TIMES ONE. CONFUSED TO PLACE, TIME AND SITUATION CURRENTLY. PT WAS DROWSY AND SLEPT DURING THE NIGHT. NO FALLS. LEFT LAC TO CHEEK APPEARS TO BE LESS SWOLEN AND BRUISED. PT HAD A FALL DURING THE DAY SHIFT, C/O KNEE PAIN, TRAMADOL GIVEN WITH GOOD RELIEF. SLOW PROGRESS TOWARDS DC GOALS, WILL CONTINUE TO MONITOR.
[2018-12-07 08:20] VITALS: BP 103/66
--- NOTE | 2018-12-07 15:11 | NUR ---
ASSUMED CARES AT 0700. PT AWAKE, ALERT AND ORIENTED*4. FORGETFUL BUT NO CONFUSION NOTED, PT SAT PEACEFULLY IN HIS RECLINER READING HIS NOVEL. OLANZAPINE GIVEN AT 1500 PER NEW ORDER, WILL CONTINUE TO MONITOR PT. DENIES PAIN. VITALS REMAIN STABLE. LACERATION UNDER LEFT EYE CLEANED AND BACTRIM CREAM APPLIED. PT UP WITH 1 MIN ASSIST, GB AND WALKER. Q1H VISUAL CHECKS. CALL LIGHT WITHIN REACH. FALL PRECAUTIONS IN PLACE
[2018-12-07 20:15] VITALS: BP 97/60
[2018-12-07 20:32] VITALS: BP 97/60
--- NOTE | 2018-12-08 02:24 | NUR ---
PATIENT ASSESSED AND IS ALERT X 4. SKIN WARM AND DRY. RESP EVEN AND UNLABORED. FELL AT HOME AND HAS BRUSING ALL OVER ARMS AND HAS A SLIT ON LEFT EYE. NO COMBATIVENESS LAST NIGHT. VERY COOPERATIVE ALL SHIFT SO FAR. HAS A LEFT LEG BRACE WHILE UP. IS MINIMIAL ASSIST WITH GAIT BELT AND WALKER X 1. DENIES ANY PAIN OR SOA. IS INCONT OF URINE LAST NIGHT. BED ALARM ON. NO EDEMA NOTED TO LOWER EXTREMITIY. VS STABLE. C/O PAIN ON LEFT HEEL. HAD A LIDADERM PATCH THERE ON RN ARRIVAL REMOVED AT 2100 PER ORDERS. HAS THE SHAKINESS FROM PARKINSON DISEASE. SLEEPING WELL. REMAINS COOPERATIVE TO STAFF.CONT PLAN OF CARE.
--- NOTE | 2018-12-08 04:25 | NUR ---
PATIENT CONFUSED THIS AM, INCONT OF BLADDER IN HIS BED. TRAMADOL GIVEN FOR BACK PAIN. CONT PLAN OF CARE.
[2018-12-08 08:30] VITALS: BP 101/63
--- NOTE | 2018-12-08 16:15 | NUR ---
ASSUMED CARE OF PT AT 0715. PT IS A&OX2 AND VITAL SIGNS ARE STABLE. DENIES PAIN AND PARTICIPATED IN SCHEDULED THERAPIES. IMPULSIVE BEHAVIORS WHICH INCREASE IN EVENING. WOUND TO LEFT EYE AND CHEEK CLEANED AND OINTMENT APPLIED PER ORDERS. ORDERS FOR ACCU CHECK DAILY AT 0700 DUE TO FREQUENT LOW BLOOD GLUCOSE LEVELS IN AM. NURSING WILL ENCOURAGE FLUID AND SNACK INTAKE DURING EVENING AND NIGHT HOURS. REQUIRES FREQUENT CUES FROM NURSING STAFF FOR SAFETY WHEN AMBULATING AND TRANSFERING. FALL PRECAUTIONS IN PLACE AND NURSING WILL CONTINUE TO MONITOR.
[2018-12-08 19:15] VITALS: BP 109/67
--- NOTE | 2018-12-09 00:43 | NUR ---
PT ASSESSMENT COMPLETED AND VSS. MEDS GIVEN ORDERED AND WELL TOLERATED. PT REMAINS VERY CONFUSED AND IMPULSIVE. IN THE ROOM CONSTANTLY DURING THE NIGHT WHEN PT TRYING TO CLIMB OUT OF BED. OFFERING URINAL EACH TIME WHEN ROUNDING. INC OF LARGE AMOUNTS OF URINE. FALL PRECAUTIONS IN PLACE. SLEEPING ON AND OFF. WILL CONTINUE TO MONITOR FREQUENTLY.
--- NOTE | 2018-12-09 07:25 | HC ---
[facility] [place] [address] CONSULTATION Name: YAN CLEANING Room #: 513-P ADM IN M.R.#: [id number] Admission: 12/02/18 Attend Phys: Maikol Cooley MD Discharge: Date of : 49 Report #: [id number] THIS REPORT FOR: //name// CC: Maikol Cooley FAM physician/PCP DATE OF SERVICE: 12/07/2018 NEUROBEHAVIORAL STATUS EXAMINATION AGE: 73. ATTENDING PHYSICIAN: Maikol Cooley MD ABSORPTION PLANT OPERATOR HELPER: Radames Qiu, PhD CLINICAL PRESENTATION: The patient is a 73-year-old male admitted to [facility] for evaluation and treatment of multiple falls. The patient has a recent diagnosis of Parkinson's disease and is taking Sinemet. He has sustained multiple bruises to his face. A CT scan of his head is reported to have been negative. The patient was identified as having acute mental status changes and diagnosed with a multifactorial encephalopathy. His diagnosis on the rehabilitation unit is reported as Parkinson's disease, multifactorial toxic metabolic encephalopathy, questionable head injury with multiple facial ecchymosis and excoriations. Gait instability with multiple falls, rhabdomyolysis, question of autonomic dysfunction. Elevated bilirubin, hypertension, hyperlipidemia, diabetes mellitus type 2 and multiple facial lacerations and abrasions to his arms. A complete description of his medical condition and history along with medications can be found in his medical record. Neuropsychological consultation was requested to provide assistance in the assessment of cognitive and emotional status and to provide recommendations and history. Prior to this most recent admission, the patient is reported to have been living by himself. He indicates having no children. 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 He reports having graduated college. He has a roommate and close friend that has been providing additional assistance in helping him manage living independently. TECHNIQUES UTILIZED: Clinical interview, review of medical records, staff consultation and behavioral observation, mini mental status exam 2 standard version and brief category assessment and clock drawing. EXAMINATION FINDINGS: The patient was alert and cooperative with the assessment. However, he spoke with very soft volume. He reports difficulty [facility] [address] [place] [address] CONSULTATION Name: YAN CLEANING Room #: 513-P [facility] IN M.R.#: [id number] Admission: 12/02/18 Attend Phys: Maikol Cooley MD Discharge: Date of : 49 Report #: [id number] with memory, word finding and anxiety. He also reports feeling depressed. He does not report difficulty with sleep or appetite. A past history of alcohol abuse and cannabis is reported. He indicates having quit 3 years ago. Performance on the MMSE 2 brief version was extremely low with a raw score of 10 of 16. He was 3/3 for initial registration, 3/5 for orientation to time, 3/[address] and 1/3 for immediate recall of 3 items after a brief time delay and distraction. Performance on the MMSE 2 standard version was extremely low with a raw score of 19 and a T score of 15. He was 1/5 for serial sevens, 2/2 for naming, 1/1 for repetition, 3/3 for auditory comprehension. He could read and follow single written command and write a sentence. The patient was unable to accurately copy a simple geometric design. The patient was unable to draw a clock, place the numbers or set the hands at a designated time. The patient is presenting with moderate to severe deficits in cognition. Impairment includes memory, attention/concentration, visual spatial coordination and executive functioning. DIAGNOSTIC IMPRESSION: Major neurocognitive disorder (dementia), unspecified, without behavior disorder -- extent to be determined, likely moderate to severe. Unspecified anxiety disorder. RECOMMENDATIONS: The patient will benefit from a structured and supportive environment that includes assistance in the management of medication, finances and nutrition. He reports having been independent with driving and instrumental activities of daily living. Driving should be discontinued and assistance will be needed with IADLs in order to maintain safety. A followup neuropsychological assessment may be of benefit to clarify the severity of cognitive deficits. Assisted Living will likely be necessary. The patient will also benefit from verbal praise and complements about participation in therapy along with relaxation techniques to assist in the management of anxiety. Contact with his peer group will also be helpful to clarify services that they can provide to assist in his adjustment as well as provide educational information about his limitations. [facility] [address] [place] [address] CONSULTATION Name: YAN CLEANING Room #: 513-P [facility] IN M.R.#: [id number] Admission: 12/02/18 Attend Phys: Maikol Cooley MD Discharge: Date of : 49 Report #: [id number] Thank you very much for allowing me to provide the consultation on this patient. <ELECTRONICALLY SIGNED> By: Radames Qiu, PhD 12/09/18 0725 [id number] [id number] Radames Qiu, PhD /nt
[2018-12-09 08:00] VITALS: BP 107/64
--- NOTE | 2018-12-09 09:40 | NUR ---
P.T. DAILY CARE TOOL DOCUMENTED AT 0936 IS A RECREATED DOCUMENT WITH INFORMATION GATHERED FROM PT, OT, AND NURSING DAILY CARE TOOLS IN ORDER TO PRINT A TEAM CONFERENCE REPORT WITH ACCURATE LEVELS OF ASSIST FOR TODAY'S CONFERENCE.
--- NOTE | 2018-12-09 10:41 | H ---
[facility] [place] [address] HISTORY AND PHYSICAL Name: YAN CLEANING Room #: 513-P ADM IN M.R.#: [id number] Admission: 12/02/18 Attend Phys: Maikol Cooley MD Discharge: Date of : 49 Report #: [id number] THIS REPORT FOR: //name// CC: Maikol Cooley [facility] physician/PCP DATE OF SERVICE: 12/02/2018 HISTORY AND PHYSICAL/POSTADMISSION PHYSICIAN EVALUATION HISTORY OF PRESENT ILLNESS: The patient is a 73-year-old white male, previously known to me, previously admitted to [facility] on 11/26/2018 with multiple falls. He had 3 falls in one day, questionable loss of consciousness. He has a recent diagnosis of Parkinson's disease and is on Sinemet. There is a question of autonomic dysfunction and he was on Flomax and this was stopped. He sustained multiple bruises to his face. CT of the head was negative for any acute changes. He was thought to have definite acute mental status changes and was diagnosed with a multifactorial encephalopathy. He had acute rhabdomyolysis with an elevated CPK. Cardiology did not feel that he had a cardiac event and that his elevated troponin was likely related to the muscle breakdown with his rhabdomyolysis. He did have an elevated bilirubin with an abdominal ultrasound showing some borderline enlargement of the spleen, but liver size was normal. He was noted to have a significant decline from his premorbid functional status and has now been admitted for an acute in-hospital inpatient rehabilitation stay. PAST MEDICAL HISTORY: Includes non-ST elevation myocardial infarction in 2017, history of bibasilar pneumonia, left rib fracture, diabetes mellitus, hypertension, and hyperlipidemia. He has utilized a left AFO in the past. He also had kidney stone removal with stent placement. 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 MEDICATIONS: Please see the full medication listing. HABITS: Former tobacco smoker, quit approximately 3 years ago; history of alcohol use, quit 3 years ago. FAMILY HISTORY: Hypertension. SOCIAL HISTORY: Lives with a long-term roommate that he has known since college, 5 steps in. He has a premorbid walker ambulator versus cane, although he did not always use them. REVIEW OF SYSTEMS: The patient had a rough night last night. He was quite confused. Noted by nursing to be agitated, climbing out of bed constantly. He was monitored frequently. Review of systems is otherwise difficult to obtain, [address] [address] HISTORY AND PHYSICAL Name: YAN CLEANING Room #: 513-P [facility] IN ..#: [id number] Admission: 12/02/18 Attend Phys: Maikol Cooley MD Discharge: Date of : 49 Report #: [id number] as he is quite somnolent this morning after being up much of the night. PHYSICAL EXAMINATION: GENERAL: A 73-year-old somnolent white male, in no obvious distress. He does arouse and then quickly falls back to sleep. VITAL SIGNS: Temperature 97.8, pulse 65, respirations 20, blood pressure 96/59. HEENT: Facies appeared symmetric. He has multiple facial scrapes and ecchymoses. I did not assess EOMs. CHEST: Sounded clear to auscultation. CARDIAC: Regular rate and rhythm. ABDOMEN: Obese, bowel sounds positive, nontender. GENITOURINARY AND RECTAL: Deferred. EXTREMITIES: He has some rigidity of his upper extremities with some cogwheeling, lower extremities with some rigidity. Strength is difficult to assess, probably 3+ to 4-/5. Prior to his rehabilitation admission, he had been ambulating a short distance with a front-wheeled walker with some parkinsonian characteristics to his gait. ASSESSMENT: A 73-year-old white male with the following problem list: 1. Parkinson's disease. 2. Multifactorial toxic metabolic encephalopathy. He had a rough night last night. He was up frequently, some agitation, trying to get out of bed. 3. Questionable head injury, multiple facial ecchymoses and excoriations. He has had 2 CT heads already 6 days apart. He has had another CT of the head 2 days ago showing no acute intracranial process. 4. Gait instability with multiple falls. 5. Rhabdomyolysis. 6. Question of autonomic dysfunction. 7. Elevated bilirubin. 8. Hypertension. 9. Hyperlipidemia. 10. Diabetes mellitus type 2. 11. Multiple facial lacerations and abrasions to his arms. PLAN: The patient has been admitted for acute in-hospital inpatient rehabilitation. With his rough night, we will go ahead and ask Psychiatry to assist, to try to help manage his confusion and agitation, and hopefully, we can get him back on a regular schedule instead of being up all night. From a postadmission physician evaluation perspective, there are no relevant changes since the preadmission screening. Please see the above review of prior and current medical and functional conditions and comorbidities. Please see the patient's previous and current functional status. As far as risk of complications, he has multiple medical comorbidities as noted above. The initial plan of care involves the interdisciplinary acute inpatient rehabilitation program with the goal of maximizing his functional independence, so he can hopefully return back to his prior living situation. Prognosis is [facility] [address] [place] [address] HISTORY AND PHYSICAL Name: YAN CLEANING Room #: 513-P ADM IN M.R.#: [id number] Admission: 12/02/18 Attend Phys: Maikol Cooley MD Discharge: Date of : 49 Report #: [id number] reasonably good with estimated length of stay probably at least 10 days to 2 weeks and likely longer. Potential barriers would include his multiple medical comorbidities and decreased functional status. The patient meets diagnostic criteria for an acute in-hospital inpatient rehabilitation stay. He meets the medical necessity criteria and we will have the customer service sales consultant physicians continue to follow. He does have the tolerance for therapies and has appropriate discharge goals back to the home setting. <ELECTRONICALLY SIGNED> By: Maikol Cooley MD 12/09/18 [id number] [id number] Maikol Cooley MD /nt
--- NOTE | 2018-12-09 13:18 | NUR ---
team meeting, recommendation: will need a setting that will be able to provide 24h supervision, assist with pills and bill 12/16.
--- NOTE | 2018-12-09 19:21 | NUR ---
ASSUMED CARE OF PT AT APPROX 0700. NAD, VSS, ASSESSMENT CHARTED. DENIES PAIN AND SOA. PT VERY DROWSY THIS AM. UNABLE TO WAKE ENOUGH TO TAKE PILLS, EAT, OR WORK WITH THERAPY. PT WAS THEN ABLE TO WAKE UP AND WORK WITH THERAPY AND EAT REMAINDER OF MEALS IN DINING ROOM. PT ALWAYS USING GAIT BELT AND WALKER FOR TRANSFERS AND AMBULATING AND BED AND CHAIR ALARM ARE ON IF PATIENT IS IN BED OR CHAIR. THIS DONE TO PREVENT FALLS AND INJURY. PT COOPERATIVE AND PLEASANT, BUT CONFUSED. WILL CONT TO MONITOR.
[2018-12-09 19:24] VITALS: BP 105/60
--- NOTE | 2018-12-09 23:25 | NUR ---
PT ASSESSMENT COMPLETED AND VSS. MEDS GIVEN ORDERED AND WELL TOLERATED. FALL PRECAUTIONS IN PLACE. PT REMAINS CONFUSED THIS EVENING. SLEEPING WELL AT THIS TIME. ASST WITH FREQUENT REPOSITION FOR COMFORT. INC OF URINE. WILL CONTINUE TO MONITOR FREQUENT.
[2018-12-10 05:58] LABS: ABSOLUTE NEUTROPHILS 2.3 thou/uL (1.4-8.2); BASOPHILS 0.8 % (0.0-2.0); HEMATOCRIT 36.9 % (42.0-52.0); HEMOGLOBIN 12.6 gm/dL (14.0-18.0); LYMPHOCYTES 23.3 % (24.0-44.0); MCH 34.8 pg (26.0-34.0); MCHC 34.1 g/dL (28.0-37.0); MCV 102.1 fL (80.0-100.0); MONOCYTES 9.7 % (1.0-8.0); PLATELET COUNT 103 thou/uL (150-400); POLYS 64.2 % (36.0-66.0); RBC 3.61 mil/uL (4.50-6.00); RDW 13.8 % (10.5-14.5); WBC 3.6 thou/uL (4.0-11.0)
[2018-12-10 06:04] LABS: CALCIUM 8.7 mg/dL (8.5-10.1); CREATININE 0.8 mg/dL (0.7-1.3); MAGNESIUM 1.8 mg/dL (1.8-2.4); POTASSIUM 3.4 mmol/L (3.5-5.1)
[2018-12-10 08:01] VITALS: BP 94/58
--- NOTE | 2018-12-10 11:24 | NUR ---
ASSUMED CARE OF PT AT 0715. BLOOD PRESSURE AND HR DECREASED, PROVIDER AWARE, PT IS ASYMPTOMATIC. NURSIG TO APPLY EDSON HOSE AND ENCOURAGE PO FLUIDS. PT IS LETHARGIC, MEDICAITON TIMES CHANGED. ACCU CHECKS IN AM AND SNACK ENCOURAGED DURING NIGHT TO PREVENT HYPOGLYCEMMIA. DENIES PAIN AND IS PARTICIPATING IN SCHEDULED THERAPIES. FALL PRECAUTIONS IN PLACE AND NURSING WILL CONTINUE TO MONITOR.
--- NOTE | 2018-12-10 13:28 | NUR ---
Nutrition followup: Pt continues on rehab unit with parkinsons. ST continues to follow for possible diet upgrade. Mild/moderate dysphagia noted. PO intake is good, 75-100% of meals so no supplements needed at this time. BG controlled. Last weight taken on 12/02. REC obtain new wt. Pt had reported prior weight loss from 200# over several years which was intentional. Otherwise low risk.
--- NOTE | 2018-12-10 15:30 | NUR ---
received message from bedside nurse that michael had question concerning dc home with out someone able be with him right now. cm called spoke with friend michael, education on team meeting recommendation on supervision and continued therapy in skilled setting. " that will be fine, he liked angi transition therapy but marques and i will discuss with him and let you know where to send referrals to. thank you feel he needs some more therapy before coming home"/michael. will cont following as needed for dc needs.
[2018-12-10 19:38] VITALS: BP 119/65
--- NOTE | 2018-12-11 01:17 | NUR ---
ASSESSMENT: PT REMAIN ALERT AND ORIENT. FOLLOWING SIMPLE COMMANDS. COMPLIANT TO STAYING IN BED, AND USING CALL BUTTON WHEN IN NEED OF SOMETHING. TURNED EVERY TWO HOURS. DENIES PAIN, SOB AND N/V. STATE THAT HE WANTS TO GET SLEEP. QUIET AND DARK ENVIRONMENT PROVIDED SLOW PROGRESS TOWARDS DC GOALS, WILL CONTINUE TO MONITOR.
[2018-12-11 08:04] VITALS: BP 87/43
[2018-12-11 17:56] VITALS: BP 105/57
--- NOTE | 2018-12-12 03:37 | NUR ---
RESTING IN BED OVERNIGHT, UP TO BATHROOM TWICE TO VOID WITH GAIT BELT, WALKER, AND CONTACT GUARD ASSIST. NEEDING ASSIST MOST WHEN STANDING TO VOID TO HELP HIM NOT LEAN BACKWARDS UNSAFELY. TOLERATING MEDS WHOLE WITH APPLESAUCE AND SITTING UP 90 DEGREES
[2018-12-12 07:40] VITALS: BP 101/57
--- NOTE | 2018-12-12 10:11 | NUR ---
ASSUMED CARE OF PT AT 0715. REPORTS DIDN'T SLEEP GOOD LAST NIGHT, BUT NIGHT NURSE SAID HE DID, HAD SLEEPING AID. PT IS A&OX2, FORGETFUL. PT URINATED IN WATER PITCHER INSTEAD OF URINAL. VSS ON RA. C/O PAIN ON LEFT KNEE 5/10, PRN TYLENOL GIVE AND LIDOCAINE PATCH APPLIED. PT UP TO DINNING ROOM FOR BREAKFAST. ABLE TO FEED HIMSELF. GOOD APPETITE. NEEDS SUPERVISION FOR MEALS. VITAL SIGNS ARE STABLE ON RA. B/P 101/57, HR 64. CONTINUE TO BE ON MIDODRINE SCHEDULE FOR HYPOTENSIVE. ENCOURAGED PT TO DRINK MORE FLUID. DRANK 36OCC THIS AM. DISCUSSED ABOUT CARE PLAN TODAY AND ENCOURAGED PT TO PARTICIPATE IN SCHEDULED THERAPIES. PT WAS INCONT BLADDER THIS AM. OT GAVE BATH. PHYSICAL THERAPISTS WALKS WITH PT NOW. WOUND TO LEFT EYE AND CHEEK CLEANED AND OINTMENT APPLIED PER ORDERS GET BETTER NOW. ORDERS FOR ACCU CHECK DAILY AT 0700 DUE TO FREQUENT LOW BLOOD GLUCOSE LEVELS IN AM BS 90. NURSING WILL ENCOURAGE FLUID REQUIRES FREQUENT CUES FROM NURSING STAFF FOR SAFETY WHEN AMBULATING AND TRANSFERING. FALL PRECAUTIONS IN PLACE AND NURSING WILL CONTINUE TO MONITOR.
--- NOTE | 2018-12-12 16:38 | NUR ---
Following for d/c planning needs. Received telephone call from pt's friend Sabino. Sabino said he looked over skilled list, and wants referrals sent to [facility] and [facility]. Called admissions coordinators at both facilities and faxed referrals. Will await return call re: bed availability and acceptance. Sabino's first choice is [facility].
[2018-12-12 19:24] VITALS: BP 113/60
--- NOTE | 2018-12-13 05:01 | NUR ---
APPRECIATES LIDODERM PATCH DURING THE DAY, OFF AT NIGHT. UP TO BATHROOM WITH WALKER, GAIT BELT, AND CONTACT GUARD ASSIST. USED URINAL ONCE WITH SOME SPILLING TRYING TO GET IT IN PLACE. AWAKE NOW AND READY FOR BREAKFAST, QUICKLY ACCEPTED THAT BREAKFAST IS A FEW HOURS AWAY.
[2018-12-13 10:39] VITALS: BP 92/48
--- NOTE | 2018-12-13 11:40 | NUR ---
ASSUMED CARE AT 0700. PATIENT IS ALERT TO PERSON ONLY. PATIENT IS CONFUSED, AND FORGETFUL. PATIENT CAN'T FOCUS TODAY. HE THINKS HIS ROOM IS BEING USED FOR TECHNICAL USE TODAY. UP IN W/C TO DINING ROOM FOR MEALS. LIDOCAINE PATCH TO LEFT KNEE. FALL AND SAFETY PROTOCOLS IN PLACE. C/O LEFT KNEE PAIN. INTERVENTION ABOVE. CONTINUES TO PROGRESS SLOWLY TOWARDS D/C GOALS. WILL CONTINUE TO MONITER.
[2018-12-13 20:46] VITALS: BP 112/76
--- NOTE | 2018-12-13 22:37 | NUR ---
PT ASSESSMENT DONE AND VSS. MED GIVEN AND WELL TOLERATED. IN HIS WHEELCHAIR BY NURSES STATION UNTIL HS. SLEEPING WELL. FALL PRECAUTIONS IN PLACE. HOURLY ROUNDING. CALL LIGHT IN REACH. WILL CONTINUE TO MONITOR.
[2018-12-14 07:40] VITALS: BP 106/67
--- NOTE | 2018-12-14 11:04 | NUR ---
ASSUMED CARE OF PT AT 0715. PT IS A&X3. IS ON ROOM AIR. IS STABLE. DENIES PAIN AT THIS TIME. PT HAS LIDOCAINE PATCH TO LEFT KNEE. IS UP WITH ASSIST OF 2, GB, WALKER. FALL PRECATUIONS & HOURLY ROUNDING CONTINUED THIS SHIFT. LABS & VITALS REVEIWED. PT IS STABLE. TAKES PILLS WHOLE IN APPLESAUCE. CALL LIGHT WITHIN REACH. WILL CONTINUE TO MONITOR.
[2018-12-14 19:45] VITALS: BP 106/65
--- NOTE | 2018-12-15 03:15 | NUR ---
TOLERATING MEDS WHOLE IN APPLESAUCE AND MIRALAX IN WATER WHILE UP IN BED AT 90 DEGREE ANGLE. LIDODERM REMOVED AT HS, APPRECIATES HAVING IT ON DURING THE DAY. USES URINAL BUT SPILLS A LITTLE
[2018-12-15 10:40] VITALS: BP 109/57
--- NOTE | 2018-12-15 15:56 | NUR ---
DISCHARGE PLANNING. ANTICIPATED DISCHARGE PLANNED FOR TOMORROW PER UNIT CM. CALL PLACED TO [facility], TO VERIFY ACCEPTANCE FOR TOMORROW. VOICEMAIL LEFT FOR SUS[facility]. AWAITING RESPONSE. UNIT CM NOTIFIED. FOLLOWING.
--- NOTE | 2018-12-15 16:01 | NUR ---
chart copy requested for dc tomorrow to kgw
--- NOTE | 2018-12-15 18:31 | NUR ---
ASSUMED CARE OF PT AT 0715. PT IS A&OX2, CONFUSED, AND HAS PERIODS OF IMPULSIVITY. REPORTED PAIN IN RIGHT KNEE, MANAGED WITH LIDOCAINE PATCH, PT PARTICIPATED IN SCHEDULED THERAPIES. VISITORS AT BEDSIDE THIS EVENING. CALLING APPROPRIATELY. FALL PRECAUTIONS IN PLACE AND NURSING WILL CONTINUE TO MONITOR.
[2018-12-15 19:45] VITALS: BP 107/61
--- NOTE | 2018-12-15 23:26 | NUR ---
PT ASSESSMENT DONE AND VSS. MED GIVEN AND WELL TOLERATED. FALL PRECAUTIONS IN PLACE. SLEEPING WELL. HOURLY ROUNDING. CALL LIGHT IN REACH. WILL CONTINUE TO MONITOR.
[2018-12-16 07:48] VITALS: BP 100/59
[2018-12-16] MEDS ORDERED: ZYPREXA 5 MG TAB5 M2 PO ×2 (11:11)
[2018-12-16] MEDS ORDERED: LIDOPATCH1 EACH TRANSDERM (11:11)
[2018-12-16] MEDS ORDERED: MELATONIN5 M1 PO (11:11)
[2018-12-16] MEDS ORDERED: MIDODRINE HCL 55 M1 PO (11:11)
[2018-12-16] MEDS ORDERED: PEPCID20 MG PO (11:11)
[2018-12-16] MEDS ORDERED: COLACE100 MG PO (11:11)
[2018-12-16] MEDS ORDERED: TYLENOL325 MG PO (11:11)
[2018-12-16] MEDS ORDERED: MIRALAX17 GM PO (11:11)
[2018-12-16 12:06] VITALS: BP 107/61
--- NOTE | 2018-12-16 12:48 | NUR ---
ASSUMED CARES AT 0700. PT AWAKE, ORIENTED TO PERSON AND PLACE ONLY, FORGETFUL. DENIES PAIN. VITALS REMAIN STABLE. CONTINUES TO HAVE MILD BLE EDEMA, EXTREEMITIES ELEVATED. PT IN W/C WHEELING HIMSELF AROUND THE UNIT, NO IMPULSIVITY NOTED. PT TO DC THIS AFTERNOON, WILL CALL REPORT TO RECEIVING RN AT [facility]. Q1H VISUAL CHECKS. CALL LIGHT WITHIN REACH. FALL PRECAUTIONS IN PLACE
--- NOTE | 2018-12-16 13:31 | NUR ---
cm notified by cm team that pt has been accepted to snf today at [facility], chart copy requested yesterday. bedside nurse to call report. transport time 1500 team meeting recommendation cont with dcp
--- NOTE | 2018-12-23 12:00 | PLAN ---
[facility] [place] [address] REHAB UNIT PLAN OF CARE Name: YAN CLEANING Room #: 513-P DIS IN M.R.#: [id number] Admission: 12/02/18 Attend Phys: Maikol Cooley MD Discharge: 12/16/18 Date of : 49 Report #: [id number] THIS REPORT FOR: //name// CC: Maikol Cooley [facility] physician/PCP DATE OF SERVICE: 12/05/2018 HISTORY AND PHYSICAL/POST-ADMISSION PHYSICIAN EVALUATION SUBJECTIVE: The patient is seen back today in followup. He is in no distress. He appears more alert than when last seen. Needs to be redirected; however. Appreciate Psychiatry involvement. There diagnosis is dementia based on history, he had low dose Zyprexa. Continuing with current parkinsonian management. He has been involved in therapies with transfers, min assist, gait min assist 150 feet front-wheeled walker with a left AFO. In occupational therapy, lower body dressing is min assist. Speech moderate comprehensive deficits, mechanical soft with thin liquids. ASSESSMENT: 1. Parkinson's disease. 2. Multifactorial toxic metabolic encephalopathy. 3. Dementia per history as per Psychiatry. 4. Questionable head injury with multiple facial ecchymoses and excoriations. 5. Gait instability with multiple falls. 6. Rhabdomyolysis. 7. Question of autonomic dysfunction. 8. Elevated bilirubin. 9. Hypertension. 10. Hyperlipidemia. 11. Diabetes mellitus type 2. PLAN: The overall plan of care is based on the preadmission screen, post-admission physician evaluation and information garnered from therapy assessments. 1. Estimated length of stay is probably at least 2 weeks. 2. Medical prognosis is reasonably good. 3. Anticipated interventions includes the interdisciplinary acute inpatient rehabilitation program. 4. Anticipated functional outcomes would be for the patient to hopefully achieve her prior level of function, utilizing a walker with mobility and ADLs and to improve as far as cognition. 5. Discharge destination would be back home with his roommate. If he can further improve as far as his overall function. The cognitive issues may be a concern, but will need to see how he does. 6. Expected therapy by discipline includes PT, OT and speech 1 hour per day [address] [address] REHAB UNIT PLAN OF CARE Name: YAN CLEANING Room #: 513-P [facility] IN ..#: [id number] Admission: 12/02/18 Attend Phys: Maikol Cooley MD Discharge: 12/16/18 Date of : 49 Report #: [id number] each five days a week throughout the duration of the acute inpatient rehabilitation stay. The patient was still working outside the home prior to admission, so we will need to see how he does in his therapy program. <ELECTRONICALLY SIGNED> By: Maikol Cooley MD 12/23/18 1200 [id number] 1534 Maikol Cooley MD /PMT
== END 2018-12-16 15:42 | DRG 56 ==
PROVIDERS: Nurse Practitioner; Nurse Practitioner Family; ADMIT Physical Medicine & Rehabilitation
DX: G20 Parkinson's disease (principal); G92 Toxic encephalopathy; M62.82 Rhabdomyolysis; F05 Delirium due to known physiological condition; S05.42XA Penetrating wound of orbit with or without foreign body, left eye, initial encounter; N17.9 Acute kidney failure, unspecified; E78.5 Hyperlipidemia, unspecified; F03.90 Unspecified dementia, unspecified severity, without behavioral disturbance, psychotic disturbance, mood disturbance, and anxiety; Z96.0 Presence of urogenital implants; R82.2 Biliuria; D69.6 Thrombocytopenia, unspecified; X58.XXXA Exposure to other specified factors, initial encounter; I95.9 Hypotension, unspecified; K59.00 Constipation, unspecified; M17.11 Unilateral primary osteoarthritis, right knee; I25.10 Atherosclerotic heart disease of native coronary artery without angina pectoris; N18.2 Chronic kidney disease, stage 2 (mild); I12.9 Hypertensive chronic kidney disease with stage 1 through stage 4 chronic kidney disease, or unspecified chronic kidney disease; F01.50 Vascular dementia, unspecified severity, without behavioral disturbance, psychotic disturbance, mood disturbance, and anxiety; F41.9 Anxiety disorder, unspecified; E11.22 Type 2 diabetes mellitus with diabetic chronic kidney disease; D64.89 Other specified anemias; R29.3 Abnormal posture; Z91.81 History of falling; I25.2 Old myocardial infarction; Z87.01 Personal history of pneumonia (recurrent); Z87.442 Personal history of urinary calculi; Z87.891 Personal history of nicotine dependence; Z82.49 Family history of ischemic heart disease and other diseases of the circulatory system; Y93.89 Activity, other specified; Y92.89 Other specified places as the place of occurrence of the external cause; Y99.8 Other external cause status; Z95.1 Presence of aortocoronary bypass graft
CPT/HCPCS: 10112